=== PATIENT | male | born 1985 | race Caucasian/White ===

== ENCOUNTER 2019-04-02 10:29 | Emergency (ER) | payer BC, OTHER ==
[2019-04-02 10:33] VITALS: BP 128/78; PULSE 84; RESP 20; TEMP 98.4
[2019-04-02] MEDS ORDERED: PROPARACAINE 0.5% OPHTH DROPS 15 ML BTL RIGHT EYE STA (10:38)
[2019-04-02] MEDS ORDERED: OFLOXACIN 0.3% OPHTH DROPS 5 ML BOTTLE LEFT EYE STA (11:02)
--- NOTE | 2019-04-02 11:10 | ED ---
Eye Problem HPI - General Chief complaint: Eye Problems Stated complaint: chemical in eye-[facility] Time Seen by Provider: 04/02/19 10:38 Source: patient, RN notes reviewed, old records reviewed Mode of arrival: ambulatory - History of Present Illness Initial comments: 33-year-old male presents for shortness his left eye irritation. Patient reports that he had chemical exposure to his eye last night. At work. He reports it was was a cleaning chemical at this time. Patient states that he initially flush his eye. He is continue to have some irritation and pain over the lower portion of the eye. Patient states that he's had no visual changes. He does not wear glasses or contacts. He denies any lower eye blurriness or discharge. - Related Data Previous Rx's Medication Instructions Recorded Ofloxacin 0.3% Ophth Soln [Ocuflox 1 drops LEFT EYE QID #1 bottle 04/02/19 Ophth Soln] Allergies Allergy/AdvReac Type Severity Reaction Status Date / Time Penicillins Allergy Unknown Verified 04/02/19 10:33 Review of Systems ROS Statement: Those systems with pertinent positive or pertinent negative responses have been documented in the HPI. ROS Other: All systems not noted in ROS Statement are negative. Past Medical History Past Medical History: No Reported History History of Any Multi-Drug Resistant Organisms: None Reported Past Surgical History: Hernia Repair Past Psychological History: No Psychological Hx Reported Smoking Status: Never smoker Past Alcohol Use History: Occasional Past Drug Use History: Marijuana General Exam - General Exam Comments Initial Comments: Alert and oriented 33-year-old male. No distress. General appearance: alert, in no apparent distress Head exam: Present: atraumatic, normocephalic, normal inspection Eye exam: Present: PERRL, EOMI, conjunctival injection (Left eye conjunctival injection. Evidence of an abrasion at the 6 to 5 o'clock position.). Absent: normal appearance (Montes is left eye conjunctival injection.), scleral icterus, periorbital swelling ENT exam: Present: normal exam, mucous membranes moist Neck exam: Present: normal inspection. Absent: tenderness, meningismus, lymphadenopathy Respiratory exam: Present: normal lung sounds bilaterally. Absent: respiratory distress, wheezes, rales, rhonchi, stridor Cardiovascular Exam: Present: regular rate, normal rhythm, normal heart sounds. Absent: systolic murmur, diastolic murmur, rubs, gallop, clicks GI/Abdominal exam: Present: soft, normal bowel sounds. Absent: distended, tenderness, guarding, rebound, rigid Extremities exam: Present: normal inspection, full ROM, normal capillary refill. Absent: tenderness, pedal edema, joint swelling, calf tenderness Back exam: Present: normal inspection Neurological exam: Present: alert, oriented X3, CN II-XII intact Psychiatric exam: Present: normal affect, normal mood Skin exam: Present: warm, dry, intact, normal color. Absent: rash Course Vital Signs 04/02/19 10:30 Temperature 98.4 F Pulse Rate 84 Respiratory 20 Rate Blood Pressure 128/78 O2 Sat by Pulse 99 Oximetry Medical Decision Making - Medical Decision Making Patient is a 33-year-old male with left eye pain. Patient reports that he had a chemical exposure within the left eye yesterday while at work. He was with a chemical was used for cleaning. At this time patient's eye is slightly injected. Evidence of a corneal abrasion likely from him rinsing his eye yesterday. Patient visual acuity is intact. His ptosis. patient started on ocuflox drops. i discussed the patient should've close follow-up with primary care doctor and ophthalmology. given a note for work. Disposition Clinical Impression: Corneal abrasion Disposition: HOME SELF-CARE Condition: Good Instructions (If sedation given, give patient instructions): Corneal Abrasion (ED) Additional Instructions: Patient advised to apply the eyedrops every 4 hours. Have close follow-up with ophthalmology if symptoms continue to persist. Return to emergency department i f any alarming signs or symptoms occur. Prescriptions: Ofloxacin 0.3% Ophth Soln [Ocuflox Ophth Soln] 1 drops LEFT EYE QID #1 bottle Is patient prescribed a controlled substance at d/c from ED?: No Referrals: Roger Dougherty DO [Primary Care Provider] - 1-2 days Francisco Cano MD [STAFF PHYSICIAN] - 1-2 days Time of Disposition: 11:08
== END 2019-04-02 11:24 | disposition home or self-care (01) ==
LOC: EC 10:29
DX: S05.02XA Injury of conjunctiva and corneal abrasion without foreign body, left eye, initial encounter (principal); Z88.0 Allergy status to penicillin; X58.XXXA Exposure to other specified factors, initial encounter; Y92.69 Other specified industrial and construction area as the place of occurrence of the external cause; Y99.0 Civilian activity done for income or pay
CPT/HCPCS: 99283